=== PATIENT | male | born 1950 | race Caucasian/White ===

== ENCOUNTER 2020-06-18 08:00 | Outpatient (CLI) | payer MEDICARE, OTHER, SELFPAY ==
--- NOTE | 2020-06-18 08:07 | USCV_ITS ---
Prem Gunn Age: 69 Gender: M : 1950 Exam Date: 06/18/2020 08:27 Ordering Phys: Katt Red Technologist: [place] [facility] [place]: BP: 124 / 65 HR: 65 Rhythm: Sinus Technical Quality: Good MEASUREMENTS (Male / Female) Normal Values 2D ECHO LV Diastolic Diameter PLAX 4.9 cm 4.2 - 5.9 / 3.9 - 5.3 cm LV Systolic Diameter PLAX 2.7 cm IVS Diastolic Thickness 1.2 cm 0.6 - 1.0 / 0.6 - 0.9 cm IVS Systolic Thickness 1.8 cm LVPW Diastolic Thickness 1.2 cm 0.6 - 1.0 / 0.6 - 0.9 cm LVPW Systolic Thickness 1.5 cm LVOT Diameter 2.1 cm LV Ejection Fraction 2D Teich 75.3 % LV Ejection Fraction MOD 2C 70.3 % LV Ejection Fraction 2C AL 70.7 % LA Diameter 4.1 cm LA Width 4.5 cm LA Height 5.2 cm RA Width 3.4 cm RA Height 5.5 cm Aorta at Sinotubular Diameter 2.7 cm M-MODE LV Diastolic Diameter MM 5.9 cm 4.2 - 5.9 / 3.9 - 5.3 cm LV Systolic Diameter MM 3.7 cm LV Ejection Fraction MM Teich 66.8 % IVS Diastolic Thickness MM 1.1 cm 0.6 - 1.0 / 0.6 - 0.9 cm IVS Systolic Thickness MM 1.9 cm LVPW Diastolic Thickness MM 1.0 cm 0.6 - 1.0 / 0.6 - 0.9 cm LVPW Systolic Thickness MM 1.7 cm RV Diastolic Diameter MM 2.1 cm Aortic Annulus Diameter 3.9 cm LA Ao Ratio MM 1.1 MV E Point Septal Separation 1.0 cm DOPPLER AV Peak Velocity 274.7 cm/s LVOT Peak Velocity 108.0 cm/s AV Area Cont Eq vti 1.3 cm squared AV Area Cont Eq pk 1.3 cm squared MV Area PHT 5.0 cm squared Mitral E to A Ratio 0.7 MV E' Velocity 41.5 cm/s Mitral E to MV E' Ratio 14.1 Mitral E to LV E' Lateral Ratio 12.7 Mitral E to LV E' Septal Ratio 15.8 TR Peak Velocity 242.7 cm/s TR Peak Gradient 23.6 mmHg Right Atrial Pressure 3.0 mmHg Pulmonary Artery Systolic Pressu 26.6 mmHg PV Peak Velocity 74.0 cm/s FINDINGS Left Ventricle Normal left ventricular size and systolic function, EF 68 %. Mild left ventricular hypertrophy. No regional wall motion abnormalities. Grade I/IV diastolic dysfunction (abnormal relaxation filling pattern), normal to mildly elevated filling pressures. Right Ventricle The right ventricle is normal in size and function. Right Atrium The right atrium is normal in size. Left Atrium The left atrium is normal in size. Mitral Valve Thickened mitral valve. Trace mitral valve regurgitation. Aortic Valve Moderate aortic valve stenosis, mean gradient 13.4 mmHg with a peak gradient of 33. Aortic valve area of escalated to be 1.33 cm squared. Tricuspid Valve Trace tricuspid valve regurgitation. Pulmonic Valve Structurally normal pulmonic valve without significant stenosis. There is no pulmonic regurgitation. Pericardium Normal pericardium without effusion. Aorta Plaque seen in the ascending aorta. CONCLUSIONS Normal left ventricular size and systolic function, EF 68 %. Mild left ventricular hypertrophy. No regional wall motion abnormalities. Grade I/IV diastolic dysfunction (abnormal relaxation filling pattern), normal to mildly elevated filling pressures. Moderate aortic valve stenosis, mean gradient 13.4 mmHg with a peak gradient of 33. Aortic valve area was calculated to be 1.33 cm squared. Thickened mitral valve. Trace mitral valve regurgitation. Trace tricuspid valve regurgitation. Estimated pulmonary artery peak systolic pressure 27 mmHg. There is no pericardial effusion. There are no intracardiac masses. No previous study is available for comparison. Dr Pelon Matthews MD [facility] (Electronically Signed) Final Date: 18 June 2020 18:25 S
== END 2020-06-18 08:01 | disposition home or self-care (01) ==
LOC: US 08:04
PROVIDERS: PCP Physician Assistant; Visit Provider Physician Assistant
DX: I08.3 Combined rheumatic disorders of mitral, aortic and tricuspid valves (principal)
CPT/HCPCS: 93306

== ENCOUNTER → 2021-02-02 13:07 | Outpatient (BNVA) | payer MEDICARE, OTHER, SELFPAY | PROVIDERS: PCP Physician Assistant; Visit Provider Internal Medicine | DX: Z20.822 Contact with and (suspected) exposure to COVID-19 (principal); Z01.812 Encounter for preprocedural laboratory examination | CPT/HCPCS: 87635 ==

== ENCOUNTER 2021-02-08 06:36 | Day surgery (SDC) | payer MEDICARE, OTHER, SELFPAY ==
[2021-02-04 09:32] VITALS: BMI 28.5
[2021-02-08 06:50] VITALS: BP 141/86; PULSE 73; RESP 18; TEMP 36.7; O2SAT 98
[2021-02-08] MEDS: sodium chloride 0.9% 1,000 ML 30 ML IV (06:57)
--- NOTE | 2021-02-08 07:00 | ANES.PREANE2 ---
Pre-Anesthetic Assessment Pre-Anesthetic Assessment: Height/Weight: Height 1.77 m Weight 88.904 kg Temp Pulse Resp BP Pulse Ox 98.1 F 73 18 141/86 98 02/08/21 06:50 02/08/21 06:50 02/08/21 06:50 02/08/21 06:50 02/08/21 06:50 Preop Diagnosis: screening Proposed Procedure: Operation Date: 02/08/21 07:30 Proposed Procedures p Colonoscopy 09269 Z12.11(Not Applicable) - Sanford Johnson MD Familial anesthetic complications: none Was Beta Patricio taken within 24 hours: Yes Was Clonidine taken within 24 hours: N/A Last intake: Intake Last Liquid Date 02/07/21 Last Liquid Time 22:00 Last Solid Date 02/06/21 Last Solid Time 00:00 Last Intake: 22:00 Social: Social History: Alcohol (2-4 beers a day) and No tobacco Exam: Pre-Anes Outpt Exam: alert, oriented x 3, clear to auscultation bilaterally and regular rate & rhythm (murmor noted) Airway: Submandibular: WNL Cervical ROM: WNL MP: 2 Dentition: Full Pulmonary: Pulmonary: None reported CV/HEM: CV/HEM: HTN and Murmur Comments: 3cm AAA : : None reported Hepatic: Hepatic: None reported GI: GI: None reported Metabolic: Metabolic: None reported Musc/skel: Musc/skel: None reported Neuropsych: Neuropsych: None reported Anesthetic Plan: ASA status: 3 Anesthesia: MAC Data Anesthesia Cardiac Studies: No Data to Display
--- NOTE | 2021-02-08 07:21 | P.HP_ITS ---
Same Day Surgery H&P Indication for Procedure/HPI DATE OF PROCEDURE: February 08, 2021 CHIEF COMPLAINT/INDICATIONFOR SURGICAL PROCEDURE: Screening PREOP DIAGNOSIS: screening PLANNED PROCEDRUE: Operation Date: 02/08/21 07:30 Proposed Procedures p Colonoscopy 98817 Z12.11(Not Applicable) - Sanford Johnson MD Medications/Allergies* Home Medications Medication Instructions Recorded Confirmed Type atenolol 50 mg PO DAILY 02/04/21 02/08/21 History atorvastatin 40 mg PO DAILY 02/04/21 02/08/21 History losartan-hydrochlorothiazide 1 tab PO DAILY 02/04/21 02/08/21 History tamsulosin 0.4 mg PO DAILY 02/04/21 02/08/21 History Allergies/Adverse Reactions Allergy/AdvReac Type Severity Reaction Status Date / Time No Known Allergies Allergy Verified 02/04/21 09:26 Pertinent Exam Findings alert, oriented x 3, clear to auscultation bilaterally, regular rate & rhythm, operative site marked and procedure specific exam findings Recommendations Surgery/Procedure today Coding Level of Care Code Acute Storage Garage Attendant for Dipesh Patterson
[2021-02-08 08:12] VITALS: BP 88/61; PULSE 80; RESP 16; TEMP 36.4; O2SAT 94
[2021-02-08 08:16] VITALS: BP 91/58; PULSE 79; RESP 16; O2SAT 95
[2021-02-08 08:19] VITALS: BP 96/52; PULSE 84; RESP 18; O2SAT 95
[2021-02-08 08:28] VITALS: BP 99/77; PULSE 75; RESP 18; TEMP 36.6; O2SAT 94
[2021-02-08 08:31] VITALS: BP 114/75; PULSE 75; RESP 18; O2SAT 94
--- NOTE | 2021-02-08 14:25 | ANE.PACU2 ---
Inpatient post-anesthesia follow up: Airway intact: Yes Vital signs: Temperature 97.8 F Pulse Rate 75 Respiratory Rate 18 Blood Pressure 114/75 Pulse Oximetry 94 Oxygen Delivery Me thod Room Air Oxygen Flow Rate 2 Fraction of Inspir ed Oxygen Hydration adequate: Yes Nausea and vomiting: No Pain level: 2 Mental status: Baseline
== END 2021-02-08 08:40 | disposition home or self-care (01) ==
PROVIDERS: PCP Physician Assistant; Visit Provider Internal Medicine
PROC: 0DJD8ZZ Inspection of Lower Intestinal Tract, Via Natural or Artificial Opening Endoscopic (ICD-10-PCS; CPT 45378; principal; 2021-02-08 07:30)
DX: Z12.11 Encounter for screening for malignant neoplasm of colon (principal); K57.30 Diverticulosis of large intestine without perforation or abscess without bleeding; I10 Essential (primary) hypertension
CPT/HCPCS: 96360; 96361; G0121; J2704; J7030

== ENCOUNTER 2022-11-01 10:25 | Outpatient (CLI) | payer MEDICARE, OTHER, SELFPAY ==
--- NOTE | 2022-11-01 10:39 | CT_ITS ---
WS: [id number] CT CHEST, ABDOMEN AND PELVIS WITH CONTRAST HISTORY: RUQ PAIN/THORACIC BACK PAIN TECHNIQUE: Contiguous 5 mm axial imaging performed through the chest, abdomen and pelvis with IV cont rast, oral contrast has been provided. Coronal and sagittal reformats chest. Coronal and sagittal ref ormats through the abdomen and pelvis. All CT scans at [facility] use at least one of these d ose optimization techniques: automated exposure control; mA and/or kV adjustment per patient size (in cludes targeted exams where dose is matched to clinical indication); or iterative reconstruction. CONTRAST: Omnipaque 350; 100 mL IV. DLP: 1106.25 mGy.cm COMPARISON: None available. Chest CT: Peripheral micronodule near the lingula. This nodule may be within the fissure. No suspicio us masses, pneumonia or nodule. No bronchiectasis. Normal size pulmonary artery. This study was not p rotocoled for pulmonary emboli. Mild atherosclerosis aorta. LEFT vertebral artery arises directly fro m the aortic arch. No mediastinal or hilar adenopathy. Mild enlargement of the heart. No pericardial effusion. Very small hiatal hernia. Abdomen CT: Normal liver and portal vein. Normal gallbladder. Normal spleen at 11.6 cm in length. Nor mal portal vein. Normal pancreas and adrenal glands. Bilateral indeterminate masses within each kidne y. 1.8 cm low-attenuation mass from the posterior mid RIGHT kidney with elevated Hounsfield units. Th ere are additional low-attenuation lesions within the RIGHT kidney which are too small to characteriz e. There is a focal scar in the mid lateral renal cortex. Additional scattered low-attenuation masses within the LEFT kidney with the largest measuring 1.6 cm. Nonobstructing renal calculi. Mild atheros clerosis aorta. Stomach is not distended with oral contrast. No small bowel obstruction. Mild tortuosity of the colon from chronic constipation. Numerous diverticula throughout the colon. Increasing burden in the sigmo id. Mild circumferential wall thickening with no obstruction or acute diverticulitis. The appendix is normal and contains air. No adenopathy or free fluid. No free air. Pelvic CT: Enlarged prostate gland encroaching into the urinary bladder. Prostate calcifications. Pro state measures 4.3 x 5.7 cm and extends over a length of 5.9 cm. Urinary bladder is otherwise negativ e. No adenopathy or fluid in the pelvis. Mild atherosclerosis in the iliac arteries. Degenerative spondylitic changes throughout the thoracic and lumbar spines. No fractures and no destr uctive bone lesions. IMPRESSION: 1. No pulmonary mass or pneumonia. 2. No adenopathy within the chest, abdomen or pelvis. 3. Bilateral low-attenuation masses within each kidney. Some of these are too small to characterize w hile others may be complex cysts or small renal cell neoplasms. These masses are probably too small t o characterize further by ultrasound. Consider 6-month follow-up evaluation with renal mass CT protoc ol. 4. Prostate gland enlargement encroaching into the urinary bladder. 5. Extensive diverticular burden throughout the colon. Most numerous diverticula within the sigmoid c olon with no evidence for acute diverticulitis. 6. Normal appendix.
[2022-11-01] MEDS: iohexol 350 mg/mL 500 mL Btl (per mL) PO (11:29)
[2022-11-01] MEDS: iohexol 350 mg/mL 500 mL Btl (per mL) IV (11:31)
== END 2022-11-01 10:26 | disposition home or self-care (01) ==
PROVIDERS: PCP Physician Assistant; Visit Provider Physician Assistant
DX: R10.11 Right upper quadrant pain (principal); M54.6 Pain in thoracic spine; N28.89 Other specified disorders of kidney and ureter; N40.0 Benign prostatic hyperplasia without lower urinary tract symptoms; K57.30 Diverticulosis of large intestine without perforation or abscess without bleeding
CPT/HCPCS: 71260; 74177; Q9967

== ENCOUNTER 2023-04-07 14:12 | Outpatient (CLI) | payer MEDICARE, OTHER, SELFPAY ==
--- NOTE | 2023-04-07 14:15 | CTR_ITS ---
PROCEDURE INFORMATION: Exam: CT Abdomen And Pelvis Without And With Contrast Exam date and time: 04/07/2023 2:51 PM Age: 72 years old Clinical indication: Condition or disease; Kidney or ureter condition; Other: Bilateral renal mass, 6 month followup TECHNIQUE: Imaging protocol: Computed tomography of the abdomen and pelvis without and with contrast. 3D rendering (Not supervised by radiologist): MIP and/or 3D reconstructed images were created by the technologist. Radiation optimization: All CT scans at this facility use at least one of these dose optimization techniques: automated exposure control; mA and/or kV adjustment per patient size (includes targeted exams where dose is matched to clinical indication); or iterative reconstruction. Contrast material: OMNI 350; Contrast volume: 95 ml; Contrast route: INTRAVENOUS (IV); COMPARISON: CT chest abdpel w/*[id number] 11/01/2022 11:29 AM RADIATION DOSE METRICS: Total DLP (mGy-cm): 2535.08 FINDINGS: Lungs: Lung bases are clear. No pleural effusion. Liver: Normal. No mass. Gallbladder and bile ducts: Normal. No calcified stones. No ductal dilation. Pancreas: Normal. No ductal dilation. Spleen: Normal. No splenomegaly. Adrenal glands: Normal. No mass. Kidneys and ureters: The right kidney contains a 2.2 cm simple cyst. The left kidney contains a 1.8 cm simple cyst. Stomach and bowel: There are multiple scattered diverticula throughout much of the colon. Appendix: No evidence of appendicitis. Intraperitoneal space: Unremarkable. No free air. No significant fluid collection. Vasculature: Unremarkable. No abdominal aortic aneurysm. Lymph nodes: Unremarkable. No enlarged lymph nodes. Urinary bladder: Unremarkable as visualized. Reproductive: Prostate enlargement is noted. Bones/joints: Unremarkable. No acute fracture. Soft tissues: Unremarkable. CT/CT abdomen pelvis wo/w [id number] IMPRESSION: 1. A benign renal cyst or cysts have been detected. No further follow-up imaging is required. 2. Diverticulosis 3. Prostate enlargement COMMENTS: Consistent with the [employer]'s Incidental Findings Committee white paper (J Am Roberto Radiol 2018): Any incidental renal lesion less than 1 cm or classified as too small to characterize, or any incidental cystic renal lesion characterized as simple-appearing, is likely benign. No follow-up imaging is recommended for these lesions per consensus recommendations based on imaging criteria.
[2023-04-07 14:48] LABS: Blood Urea Nitrogen 26 mg/dL (8-23)
== END 2023-04-07 14:13 | disposition home or self-care (01) ==
LOC: RAD 14:12
PROVIDERS: PCP Physician Assistant; Visit Provider Physician Assistant
DX: N28.89 Other specified disorders of kidney and ureter (principal); N28.1 Cyst of kidney, acquired; K57.90 Diverticulosis of intestine, part unspecified, without perforation or abscess without bleeding; N40.0 Benign prostatic hyperplasia without lower urinary tract symptoms
CPT/HCPCS: 74178; 82565; 84520; Q9967

== ENCOUNTER 2023-04-17 13:08 | Outpatient (CLI) | payer MEDICARE, OTHER, SELFPAY ==
--- NOTE | 2023-04-17 13:14 | CT_ITS ---
WS: [id number] CT chest wo con [id number] HISTORY: THORACIC BACK PAIN TECHNIQUE: Axial imaging performed through the thorax. Coronal and sagittal reformats are submitted. All CT scans at [facility] use at least one of these dose optimization techniques: automated exposure control; mA and/or kV adjustment per patient size (includes targeted exams where dose is mat ched to clinical indication); or iterative reconstruction. CONTRAST: None DLP: 526.94 mGy.cm COMPARISON: 11/01/2022 Lungs and central airway: Lungs are clear. No pneumonia. Mild dependent changes posteriorly. Pleura: Normal. No pleural effusion. Heart and pericardium: Mild cardiomegaly with no pericardial effusion. Mediastinum and mirza: No mediastinum or hilar adenopathy. Vessels: Mild atherosclerotic plaque. More diffuse coronary artery calcification. Chest wall and lower neck: No soft tissue masses. Upper abdomen: LEFT renal cyst measures 1.5 cm was recently described on 11/01/2022. No adrenal mass. The visualized liver is negative. Numerous diverticula are identified within the transverse colon whi ch is visualized through the upper abdomen. Osseous structures: Increase in thoracic kyphosis. IMPRESSION: 1. No pneumonia or pulmonary mass/nodule. 2. Mild thoracic spondylosis. No fractures. 3. No adenopathy. 4. Mild cardiomegaly with advanced coronary artery calcification.
== END 2023-04-17 13:09 | disposition home or self-care (01) ==
LOC: RAD 13:09
PROVIDERS: PCP Physician Assistant; Visit Provider Physician Assistant
DX: M54.6 Pain in thoracic spine (principal)
CPT/HCPCS: 71250

== ENCOUNTER 2023-09-18 16:13 | Outpatient (CLI) | payer MEDICARE, OTHER, SELFPAY ==
--- NOTE | 2023-09-18 16:21 | CTR_ITS ---
PROCEDURE INFORMATION: Exam: CT Abdomen And Pelvis Without And With Contrast Exam date and time: 09/18/2023 5:08 PM Age: 73 years old Clinical indication: Condition or disease; Kidney or ureter condition; Cyst of kidney; Prior surgery; Surgery date: 6+ months; Patient HX: Follow up renal cyst? HX of urethra surgery to widen it. ; Additional info: Bilateral renal stone TECHNIQUE: Imaging protocol: Computed tomography of the abdomen and pelvis without and with contrast. 3D rendering (Not supervised by radiologist): MIP and/or 3D reconstructed images were created by the technologist. Radiation optimization: All CT scans at this facility use at least one of these dose optimization techniques: automated exposure control; mA and/or kV adjustment per patient size (includes targeted exams where dose is matched to clinical indication); or iterative reconstruction. Contrast material: OMNI 350; Contrast volume: 100 ml; Contrast route: INTRAVENOUS (IV); COMPARISON: CT abdomen pelvis wo/w [id number] 04/07/2023 2:51 PM RADIATION DOSE METRICS: Total DLP (mGy-cm): 2113.54 FINDINGS: Lungs: There are minor atelectatic changes at the lung bases. Diaphragm: Small hiatal hernia. Liver: Liver is unremarkable. No mass or enlargement detected. Gallbladder and biliary ducts: Gallbladder is contracted limiting its assessment. Bile ducts are not dilated. Pancreas: Unremarkable. Main pancreatic duct is not significantly dilated. Spleen: Normal. No splenomegaly. Adrenal glands: Normal. No mass. Kidneys and ureters: Tiny nonobstructing calculus both kidneys. Stable small exophytic cortical cyst upper pole left kidneydd with benign density readings. Similar size exophytic cortical cyst midpole right kidney unchanged and also likely benign based on density readings. With Stomach and bowel: There are multiple diverticuli throughout the large bowel without evidence of diverticulitis. Appendix: No evidence of appendicitis. Intraperitoneal space: Unremarkable. No free air. No significant fluid collection. Vasculature: Mild atherosclerotic changes of the abdominal aorta. There is some calcification and narrowing at the origin of the renal arteries bilaterally. Lymph nodes: Unremarkable. No enlarged lymph nodes. Urinary bladder: Unremarkable as visualized. Reproductive: Prostate gland is mildly enlarged. Bones/joints: Stable radiolucent bone lesion L3 vertebral body from July 2022 likely benign. Soft tissues: Unremarkable. CT/CT abdomen pelvis wo/w [id number] IMPRESSION: 1. Stable small benign-appearing cortical cysts both kidneys and small nonobstructing renal stones. 2. Mild prostate enlargement. 3. Diffuse colonic diverticulosis. No evidence of acute diverticulitis. 4. Additional chronic findings above.
[2023-09-18 16:58] LABS: Blood Urea Nitrogen 42 mg/dL (8-23)
[2023-09-18] MEDS: iohexol 350 mg/mL 500 mL Btl (per mL) IV (17:14)
== END 2023-09-18 16:14 | disposition home or self-care (01) ==
LOC: RAD 16:15
PROVIDERS: PCP Physician Assistant; Visit Provider Urology
DX: N20.0 Calculus of kidney (principal); K44.9 Diaphragmatic hernia without obstruction or gangrene; Q61.02 Congenital multiple renal cysts; K57.90 Diverticulosis of intestine, part unspecified, without perforation or abscess without bleeding
CPT/HCPCS: 74178; 82565; 84520; Q9967

== ENCOUNTER → 2024-03-14 11:45 | Outpatient (BNVA) | payer MEDICARE, OTHER, SELFPAY | PROVIDERS: PCP Physician Assistant; Referring Provider Physician Assistant; Visit Provider Psychiatry & Neurology Neurology | DX: R20.2 Paresthesia of skin (principal) | CPT/HCPCS: 95912 ==